=== PATIENT | male | born 1945 | race Caucasian/White ===

== ENCOUNTER → 2023-04-20 07:08 | Outpatient (REF) | payer MEDICARE, SELFPAY | LOC: MRI 3T 07:08 | PROVIDERS: ATTENDING PHYSICIAN Specialist; FAMILY PHYSICIAN Family Medicine | DX: R97.20 Elevated prostate specific antigen [PSA] (principal) | CPT/HCPCS: 72197; A9575 ==

== ENCOUNTER → 2024-05-03 07:09 | Outpatient (REF) | payer MEDICARE, SELFPAY ==
[2024-05-03 09:26] LABS: PSA, Total - Diagnostic 8.19 ng/ml (0.0-4.0)
== END ==
LOC: REG 07:09
PROVIDERS: ATTENDING PHYSICIAN Specialist; FAMILY PHYSICIAN Family Medicine
DX: R97.20 Elevated prostate specific antigen [PSA] (principal)
CPT/HCPCS: 36415; 84153

== ENCOUNTER → 2024-11-02 07:41 | Outpatient (REF) | payer MEDICARE, SELFPAY | LOC: REG 07:41 | PROVIDERS: ATTENDING PHYSICIAN Specialist | DX: R97.20 Elevated prostate specific antigen [PSA] (principal) | CPT/HCPCS: 36415; 84153; 84154 ==